=== PATIENT | female | born 1970 | race American Indian/Alaskan Native ===

== ENCOUNTER 2019-08-02 10:14 | Outpatient (CLI) | payer BC ==
[2019-08-02 10:36] LABS: Basophils # (Auto) 0.1 K/mm3 (0.0-0.1); Basophils % (Auto) 0.8 % (0.0-1.8); Eosinophils # (Auto) 0.2 K/mm3 (0.0-0.4); Eosinophils % (Auto) 3.1 % (0.0-4.3); Hematocrit 28.8 % (30.3-42.9); Hemoglobin 8.8 gm/dl (10.1-14.3); Lymphocytes # (Auto) 1.4 K/mm3 (1.2-5.4); Lymphocytes % (Auto) 20.7 % (13.4-35.0); Mean Corpuscular HGB Conc 31 % (30-34); Monocytes # (Auto) 0.7 K/mm3 (0.0-0.8); Monocytes % (Auto) 10.8 % (0.0-7.3); Red Blood Count 4.68 M/mm3 (3.65-5.03)
[2019-08-02 10:37] LABS: Mean Corpuscular Volume 61 fl (79-97)
[2019-08-02 11:53] LABS: Platelet Count 257 K/mm3 (140-440)
== END 2019-08-02 10:15 | disposition home or self-care (01) ==
LOC: LAB 10:14
PROVIDERS: ATTEND Nurse Practitioner Women's Health
DX: N93.8 Other specified abnormal uterine and vaginal bleeding (principal)
CPT/HCPCS: 36415; 85025

== ENCOUNTER 2021-03-29 11:15 | Outpatient (CLI) | payer BC ==
[2021-03-29 12:05] LABS: Hepatitis B Surface Antigen Non-Reactive (Negative); Hepatitis C Virus Antibody Non-Reactive (NonReactive)
[2021-04-04 07:43] LABS: HIV-2 Antibody Differentiation SEE SCANNED RESULT
[2021-04-04 07:44] LABS: HIV-1 Antibody Differentiation SEE SCANNED RESULT
== END 2021-03-29 11:16 | disposition home or self-care (01) ==
LOC: LAB 11:15
PROVIDERS: ATTEND Obstetrics & Gynecology
DX: N39.0 Urinary tract infection, site not specified (principal)
CPT/HCPCS: 36415; 80074; 86592; 86689; 87086

== ENCOUNTER 2021-04-08 08:01 | Outpatient (CLI) | payer BC ==
--- NOTE | 2021-04-10 12:06 | Mammography Report ---
DIGITAL SCREENING MAMMOGRAM WITH CAD, 04/08/2021 CLINICAL INFORMATION / INDICATION: Routine screening mammography. TECHNIQUE: Digital bilateral 2D mammography was obtained in the craniocaudal and mediolateral obliqu e projections. This examination was interpreted with the benefit of Computer-Aided Detection analysis . COMPARISON: Prior mammogram 04/18/2019 FINDINGS: Breast Density: There are scattered areas of fibroglandular density. No dominant mass, suspicious calcifications, or architectural distortion in the right breast. There i s a stable benign-appearing nodular density in the lower inner quadrant of the right breast. There ar e mildly prominent but symmetric axillary lymph nodes, suggesting a benign etiology. There is a 1.5 cm focal asymmetric density with possible associated architectural distortion in the 8 to 9:00 position of the left breast, middle depth, which requires further evaluation. IMPRESSION: 1. A focal asymmetric density with possible associated architectural distortion in the left breast re quires further evaluation with spot compression views and targeted ultrasound if needed. Follow up recommendation: Special View: Spot BI-RADS Category 0: Incomplete. Needs additional imaging evaluation and/or prior mammograms for abdi graham. A "normal" or negative report should not discourage follow up or biopsy of a clinically significant f inding. A written summary of these findings will be mailed to the patient. The patient will be entered into a mammography reporting system which will generate a reminder letter for the patient's next appointmen t at the appropriate interval. The [employer] recommends yearly mammograms starting at age 40 and continuing as l lucila as a woman is in good health. Breast MRI is recommended for women with an approximate 20-25% or greater lifetime risk of breast cancer, including women with a strong family history of breast or ova steve cancer or who have been treated for Hodgkin's disease. Signer Name: Verna Smith MD Signed: 04/10/2021 12:02 PM Workstation Name: [id number]
== END 2021-04-08 08:02 | disposition home or self-care (01) ==
LOC: MAMMO 08:01
PROVIDERS: ATTEND Obstetrics & Gynecology
DX: Z12.31 Encounter for screening mammogram for malignant neoplasm of breast (principal)
CPT/HCPCS: 77067

== ENCOUNTER 2021-04-30 08:05 | Outpatient (CLI) | payer BC ==
--- NOTE | 2021-04-30 09:43 | Mammography Report ---
LEFT DIGITAL DIAGNOSTIC MAMMOGRAM WITH CAD CONVENTIONAL, 04/30/2021 LEFT LIMITED BREAST ULTRASOUND CLINICAL INFORMATION / INDICATION: Focal asymmetric density/possible architectural distortion in the left medial breast on screening mammography. R92.8 TECHNIQUE: Digital left mammographic imaging was performed. Spot compression views were obtained. Ball ited ultrasound was performed. This examination was interpreted with the benefit of Computer-Aided De tection (CAD) analysis. COMPARISON: Bilateral mammography 04/08/2021 and 04/18/19. FINDINGS: Breast Density: There are scattered areas of fibroglandular density. MAMMOGRAPHIC FINDINGS: No dominant mass, suspicious calcifications, or architectural distortion in th e left breast. No persistent focal asymmetric density/distortion is seen on spot compression views. ULTRASOUND FINDINGS: Targeted ultrasound evaluation was performed of the area of interest. I see no evidence of a mass, posterior shadowing, distortion or other abnormality. IMPRESSION: No mammographic or sonographic evidence of malignancy. Follow up recommendation: Routine yearly BI-RADS Category 1: Negative. A "normal" or negative report should not discourage follow up or biopsy of a clinically significant f inding. A written summary of these findings will be mailed to the patient. The patient will be entered into a mammography reporting system which will generate a reminder letter for the patient's next appointmen t at the appropriate interval. According to the [employer], yearly mammograms are recommended starting at age 40 and continuing as long as a woman is in good health. Breast MRI is recommended for women with an liz roximately 20-25% or greater lifetime risk of breast cancer, including women with a strong family his tory of breast or ovarian cancer and women who have been treated for Hodgkin's disease. Signer Name: Randy Wood MD Signed: 04/30/2021 9:39 AM Workstation Name: [id number] Study Course
== END 2021-04-30 08:06 | disposition home or self-care (01) ==
LOC: MAMMO 08:05
PROVIDERS: ATTEND Obstetrics & Gynecology
DX: R92.8 Other abnormal and inconclusive findings on diagnostic imaging of breast (principal)

== ENCOUNTER 2021-06-24 10:50 | Outpatient (CLI) | payer BC ==
[2021-06-24 12:02] LABS: Alanine Aminotransferase 12 units/L (7-56); Albumin 4.2 g/dL (3.9-5); Blood Urea Nitrogen 15 mg/dL (7-17); Calcium 9.3 mg/dL (8.4-10.2); Chol/HDL Ratio 3.59 %; HDL Cholesterol 42 mg/dL (40-59); Hemolysis Index 1; LDL Cholesterol,Direct 102 mg/dL (50-130)
[2021-06-24 12:05] LABS: BUN/Creatinine Ratio 21
== END 2021-06-24 10:51 | disposition home or self-care (01) ==
LOC: LAB 10:50
PROVIDERS: ATTEND Internal Medicine Gastroenterology
DX: K76.0 Fatty (change of) liver, not elsewhere classified (principal)
CPT/HCPCS: 36415; 80053; 80061; 83036

== ENCOUNTER 2021-08-20 07:57 | Day surgery (SDC) | payer BC ==
[~2021-08-20 07:57] MED LIST: SODIUM CHLORIDE 0.9% 1000 ML 1,000 ML IV SCH
--- NOTE | 2021-08-20 08:27 | Anesthesia Day of Surgery ---
Anesthesia Day of Surgery - Day of Surgery Patient Examined: Yes Patient H&P Reviewed: Yes Patient is NPO: Yes
--- NOTE | 2021-08-20 08:27 | Anesthesia Consultation ---
Anesthesia Consult and Med Hx Date of service: 08/20/21 - Airway Anesthetic Teeth Evaluation: Good ROM Head & Neck: Adequate Mental/Hyoid Distance: Adequate Mallampati Class: Class II Intubation Access Assessment: Probably Good - Pulmonary Exam CTA: Yes - Cardiac Exam Cardiac Exam: RRR - Pre-Operative Health Status ASA Pre-Surgery Classification: ASA2 Proposed Anesthetic Plan: MAC - Pulmonary Hx Smoking: No Hx Asthma: No Hx Respiratory Symptoms: No Hx Sleep Apnea: No - Cardiovascular System Hx Hypertension: No Hx Coronary Artery Disease: No - Central Nervous System Hx Neuromuscular Disorder: No - Gastrointestinal Hx Ulcer: No Hx Gastroesophageal Reflux Disease: No - Endocrine Hx Renal Disease: No Hx Liver Disease: Yes (Fatty liver) Hx Non-Insulin Dependent Diabetes: No Hx Thyroid Disease: No - Hematic Hx Anemia: No Hx Sickle Cell Disease: No - Other Systems Hx Alcohol Use: No Hx Substance Use: No Hx Cancer: No Hx Obesity: Yes (BMI 38) - Additional Comments Anesthesia Medical History Comments: No hx of anesthesia complications
[2021-08-20] MEDS ORDERED: propofoL 200 MG/20 ML VIAL IV ONE ×2 (10:08→10:22)
[2021-08-20] MEDS ORDERED: LIDOCAINE MPF (2%) 20 MG/1 ML VIAL 5 ML ONE (10:41)
--- NOTE | 2021-08-20 10:46 | Short Stay Summary ---
Short Stay Documentation Date of service: 08/20/21 Narrative H&P: The patient presents for her [facility] screening colonoscopy. FH of colon polyps, father. - History Past Medical History: other (fatty liver, obesity.) Past Surgical History: , Other (tubal ligation) Social history: no significant social history - Allergies and Medications Current Medications: Allergies No Known Allergies Allergy (Verified 08/16/16 08:37) Home Medications Medication Instructions Recorded Confirmed Last Taken Type Ketorolac [Toradol] 10 mg PO Q6H PRN #20 tablet 06/13/16 Unknown Rx Ibuprofen [Motrin] 800 mg PO Q8HR PRN #15 tablet 08/16/16 Unknown Rx Ondansetron [Zofran TAB] 4 mg PO Q8HR PRN #15 tablet 08/16/16 Unknown Rx Active Medications Sodium Chloride (Nacl 0.9% 1000 Ml) 1,000 mls @ 50 mls/hr IV DIRECT SHYLA - Physical exam General appearance: no acute distress, well-nourished, obese Integumentary: no rash, no growths, no abnormal pigmentation HEENT: Atraumatic, PERRLA, EOMI, Mucous membr. moist/pink Lungs: Clear to auscultation, Normal air movement Heart: Regular rate, Normal S1, Normal S2, No murmurs, Murmur, Gallops Gastrointestinal: normoactive bowel sounds, no tenderness, no distended, no masses, no guarding, no organomegaly, obese Female Genitourinary: deferred Rectal Exam: normal exam-external/orifice, no nodular, no tenderness, no mass Extremities: no ischemia, pulses intact, pulses symmetrical, No edema, normal temperature, normal color, Full ROM Neurological: Normal gait, Normal speech, Strength at 5/5 X4 ext, Normal tone, Sensation intact, Cranial nerves 3-12 NL - Brief post op/procedure progress note Date of procedure: 08/20/21 Findings: see dictation Pathology: none (rectal polyp) Specimen disposition: to lab Condition: stable - Disposition Condition at discharge: Good Disposition: 01 HOME / SELF CARE / HOMELESS - Discharge Diagnoses (1) Family history of colonic polyps Status: Acute Short Stay Discharge Plan Activity: other (no driving for 24 hours.) Weight Bearing Status: Full Weight Bearing Follow up with: KASHIF THOMAS MD [Primary Care Provider] - 7 Days
--- NOTE | 2021-08-20 10:50 | Operative Report ---
Operative Report Operative Report: Date of procedure: 08/20/2021 Preprocedure diagnosis: Family history of colon polyps, no prior studies Post procedure diagnosis: 4 mm pedunculated rectal polyp. Procedure: Colonoscopy to the ileocecal valve with a partial view of the cecum with cold forceps polypectomy Endoscopist: Dr. De León Anesthesia: Monitored anesthesia care per anesthesia department Estimated blood loss: 0 Medications: Monitored anesthesia care. See separate report by anesthesia for details. After careful discussion of the nature and purpose of the procedure as well as details of the technique risks benefits and alternatives the patient gave consent. Please see recent history and physical from the office. The patient was placed in the left lateral decubitus position and medicated per anesthesia. A rectal exam was performed sphincter tone was normal there were no masses palpable. The Olympus pediatric colono scope was passed transanally and advanced under continuous direct vision without difficulty to the ileocecal valve. The colon was well prepared. The cecum was partially seen The ascending colon was normal. The transverse colon, descending colon, and sigmoid colon were normal. The rectum revealed a 4mm pedunculated polyp which was removed with the cold forceps. The rectum otherwise was normal on forward and retroflexed views. The procedure was well-tolerated overall and the patient was observed in recovery. Conclusions: Diminutive rectal polyp. Exam to the ileocecal valve with a pa rtial view of the cecum. Plan: Await pathology. Consider air-contrast barium enema to complete imaging of the cecum. Repeat colonoscopy in 5 years Signed electronically: Holden De León M.D.
[2021-08-20 11:53] VITALS: BP 142/83
--- NOTE | 2021-08-20 13:43 | Post Anesthesia Evaluation ---
- Post Anesthesia Evaluation Patient Participated: Yes Airway Patent: Yes Stable Respiratory Function: Yes Nausea/Vomiting: No Temp > 96.8F: Yes Pain Manageable: Yes Adequeate Hydration: Yes Anesthesia Complications: No
== END 2021-08-20 11:25 | disposition home or self-care (01) ==
LOC: GIO 07:57
PROVIDERS: ATTEND Internal Medicine Gastroenterology
DX: Z12.11 Encounter for screening for malignant neoplasm of colon (principal); K62.1 Rectal polyp; K57.30 Diverticulosis of large intestine without perforation or abscess without bleeding; K64.8 Other hemorrhoids; K63.89 Other specified diseases of intestine; E66.9 Obesity, unspecified; Z83.71 Family history of colonic polyps; Z79.899 Other long term (current) drug therapy; Z98.890 Other specified postprocedural states; Z68.38 Body mass index [BMI] 38.0-38.9, adult; Z80.0 Family history of malignant neoplasm of digestive organs
CPT/HCPCS: 45380; 88305; J2704; J3490; J7030; J7120; Q0162

== ENCOUNTER 2022-03-31 11:47 | Outpatient (CLI) | payer BC | END 2022-03-31 11:48 | disposition home or self-care (01) | LOC: LAB 11:47 | PROVIDERS: ATTEND Obstetrics & Gynecology | DX: Z01.419 Encounter for gynecological examination (general) (routine) without abnormal findings (principal); Z11.2 Encounter for screening for other bacterial diseases; Z11.3 Encounter for screening for infections with a predominantly sexual mode of transmission | CPT/HCPCS: 36415 ==

== ENCOUNTER 2022-04-14 08:04 | Outpatient (CLI) | payer BC ==
--- NOTE | 2022-04-15 13:03 | Mammography Report ---
DIGITAL SCREENING MAMMOGRAM WITH CAD, 04/14/2022 CLINICAL INFORMATION / INDICATION: Routine screening mammography. TECHNIQUE: Digital bilateral 2D mammography was obtained in the craniocaudal and mediolateral oblique projections. This examination was interpreted with the benefit of Computer-Aided Detection analysis. COMPARISON: 10/27/2012 through 04/08/2021. FINDINGS: Breast Density: There are scattered areas of fibroglandular density. No dominant mass, suspicious calcifications, or architectural distortion in either breast. Mild asymmetric breast tissue in the left upper outer quadrant is stable. Bilateral axillary lymph no anitra have not changed. IMPRESSION: No mammographic evidence of malignancy. Follow up recommendation: Routine yearly screening mammogram. BI-RADS Category 2: BENIGN. A "normal" or negative report should not discourage follow up or biopsy of a clinically significant f inding. A written summary of these findings will be mailed to the patient. The patient will be entered into a mammography reporting system which will generate a reminder letter for the patient's next appointmen t at the appropriate interval. The [employer] recommends yearly mammograms starting at age 40 and continuing as l lucila as a woman is in good health. Breast MRI is recommended for women with an approximate 20-25% or greater lifetime risk of breast cancer, including women with a strong family history of breast or ova steve cancer or who have been treated for Hodgkin's disease. Signer Name: Randy Wood MD Signed: 04/15/2022 12:59 PM Workstation Name: [id number]
== END 2022-04-14 08:05 | disposition home or self-care (01) ==
LOC: MAMMO 08:04
PROVIDERS: ATTEND Obstetrics & Gynecology
DX: Z12.31 Encounter for screening mammogram for malignant neoplasm of breast (principal); N64.89 Other specified disorders of breast
CPT/HCPCS: 77067